=== PATIENT | female | born 1975 | race Caucasian/White ===

== ENCOUNTER 2017-12-28 14:20 | Emergency (ER) | payer BC ==
[2017-12-28 14:28] VITALS: BP 130/84
--- NOTE | 2017-12-28 16:37 | EDM.PDOC ---
ED HPI GENERAL MEDICAL PROBLEM - General Chief Complaint: Lower Extremity Injury/Pain Stated Complaint: ER Time Seen by Provider: 12/28/17 14:30 Source of Information: Reports: Patient History Limitations: Reports: No Limitations - History of Present Illness INITIAL COMMENTS - FREE TEXT/NARRATIVE: Pt. states that she jumped off of a tablet last night, injuring her L heel. Pt. states that she was able to bear weight last night, but states that she has increased pain today. She denies any paresthesia in the distal portion of the extremity. Denies any injury other than what is isolated to the heel. No lateral ankle, forefoot and lower leg pain. Onset Date: 12/27/17 Location: Reports: Lower Extremity, Left Left Heel Pain Score (Numeric/FACES): 8 - Related Data Allergies Allergy/AdvReac Type Severity Reaction Status Date / Time No Known Allergies Allergy Verified 10/30/15 07:47 Home Meds: Home Meds . [No Known Home Meds] 10/30/15 [History] Past Medical History Musculoskeletal History: Reports: Back Pain, Chronic Psychiatric History: Reports: Addiction, Anxiety, Depression - Past Surgical History HEENT Surgical History: Reports: Naso-Sinus Surgery Female Surgical History: Reports: Hysterectomy Social & Family History - Tobacco Use Smoking Status *Q: Current Every Day Smoker Years of Tobacco use: 15 Packs/Tins Daily: 1 - Caffeine Use Caffeine Use: Reports: Coffee, Soda - Recreational Drug Use Recreational Drug Use: No Review of Systems - Review of Systems Review Of Systems: See Below Constitutional: Reports: No Symptoms Eyes: Reports: No Symptoms Ears: Reports: No Symptoms Nose: Reports: No Symptoms Mouth/Throat: Reports: No Symptoms Respiratory: Reports: No Symptoms Cardiovascular: Reports: No Symptoms GI/Abdominal: Reports: No Symptoms Genitourinary: Reports: No Symptoms Musculoskeletal: Reports: Foot Pain Skin: Reports: No Symptoms Neurological: Reports: No Symptoms Psychiatric: Reports: No Symptoms ED EXAM, GENERAL - Physical Exam Exam: See Below Exam Limited By: No Limitations General Appearance: Alert, WD/WN, No Apparent Distress Extremities: Normal Inspection, Normal Capillary Refill, Other (tenderness noted to L calcaneus, no deformity noted.) Neurological: Alert, Oriented, CN II-XII Intact, Normal Cognition, Normal Gait, Normal Reflexes, No Motor/Sensory Deficits Psychiatric: Normal Affect, Normal Mood Skin Exam: Warm, Dry, Intact, Normal Color, No Rash Lymphatic: No Adenopathy Course - Vital Signs Last Recorded V/S: Last Vital Signs Temp 36.8 C 12/28/17 14:25 Pulse 118 H 12/28/17 14:25 Resp 24 H 12/28/17 14:25 BP 130/84 12/28/17 14:25 Pulse Ox 97 12/28/17 14:25 - Orders/Labs/Meds Orders: Active Orders 24 hr Category Date Time Status Calcaneous Lt [CR] Stat Exams 12/28/17 14:32 Taken Departure - Departure Time of Disposition: 15:18 Disposition: Home, Self-Care 01 Condition: Good Clinical Impression: Foot contusion - Discharge Information Instructions: Foot Contusion, [id number] Referrals: Prem Arndt MD [Primary Care Provider] - Forms: ED Department Discharge Additional Instructions: Use crutches as needed to help with walking. Ice the heel for 10-15 min every 1-2 hours. Elevate foot and ankle above heart. Please excuse from work from 12/28/17 to 01/01/18 due to injury. - My Orders Last 24 Hours: My Active Orders 12/28/17 14:32 Calcaneous Lt [CR] Stat - Assessment/Plan Last 24 Hours: My Active Orders 12/28/17 14:32 Calcaneous Lt [CR] Stat Plan: Use crutches as needed to help with walking. Ice the heel for 10-15 min every 1-2 hours. Elevate foot and ankle above heart. Please excuse from work from 12/28/17 to 01/01/18 due to injury.
== END 2017-12-28 15:18 | disposition home or self-care (01) ==
LOC: SUPCPDRO 14:20 → VM.ED 14:20
DX: S90.32XA Contusion of left foot, initial encounter (principal); F17.210 Nicotine dependence, cigarettes, uncomplicated; W08.XXXA Fall from other furniture, initial encounter
CPT/HCPCS: 73650-LT; 99283

== ENCOUNTER 2021-07-02 15:00 | Emergency (ER) | payer BC, MEDICAID ==
[2021-07-02] MEDS ORDERED: Ketorolac 15 MG/ML SDV IVPUSH ONE (15:08)
[2021-07-02] MEDS ORDERED: Sodium Chloride 0.9% 1,000 ML IV SCH ×2 (15:15)
[2021-07-02 15:29] VITALS: BP 131/80; PULSE 112
--- NOTE | 2021-07-02 15:34 | CR ---
[id number] RAD/RAD Chest PA or AP 1V EXAM: FRONTAL CHEST INDICATION: CHEST PAIN. COMPARISON: None. DISCUSSION: The heart and lungs are normal in appearance. Chronic right rib fractures. IMPRESSION: 1. Negative exam. Dangelo Escobar MD 07/02/21 [id number] Thank you for allowing us to participate in the care of your patient.
[2021-07-02 16:01] LABS: CHLORIDE,CL 108 mmol/L (98-107); SODIUM,NA 141 mmol/L (136-145)
[2021-07-02 16:01] LABS: CORONAVIRUS COVID-19 NAA NEGATIVE (NEGATIVE)
[2021-07-02 16:02] LABS: ANION GAP 14.6 mmol/L (5-15)
[2021-07-02 16:02] LABS: RESPIRATORY SYNCYTIAL VIR NAA NEGATIVE (NEGATIVE)
[2021-07-02] MEDS ORDERED: Sodium Chloride 0.9% 500 ML IV ONE (16:04)
[2021-07-02] MEDS ORDERED: GI Cocktail Oral Solution 30 ML PO ONE (16:51)
--- NOTE | 2021-07-03 07:32 | EDM.PDOC ---
ED HPI GENERAL MEDICAL PROBLEM - General Chief Complaint: ENT Problem Time Seen by Provider: 07/02/21 15:00 Source of Information: Reports: Patient, Family History Limitations: Reports: No Limitations - History of Present Illness INITIAL COMMENTS - FREE TEXT/NARRATIVE: Pt. presents to ER with complaints of sore throat, problems swallowing, fever, fatigue, weakness, nausea, myalgias, arthralgias, headache, congestion and cough. She states that she symptoms started several days ago. She states that her throat hurts too much to drink. Denies any nausea or vomiting. No diarrhea. She also complained of bilateral L sided flank pain. Denies any dysuria, hesitancy, urgency, or frequency. EMS was summoned. Pt. reported complaints of respirophasic chest pain. She states that her cough is non-productive. Pt. was extremely anxious in the field, hyperventilating and complaining of numbness/tingling in her digits. Onset Date: 07/01/21 Location: Reports: Neck, Chest, Generalized Quality: Reports: Burning, Throbbing Severity: Severe Treatments [employer]IST: Reports: EKG Throat Pain Score (Numeric/FACES): 8 - Related Data Allergies Allergy/AdvReac Type Severity Reaction Status Date / Time No Known Allergies Allergy Verified 07/02/21 15:33 Home Meds: Home Meds Cholecalciferol (Vitamin D3) [Vitamin D3] 2,000 unit PO DAILY 07/02/21 [History] Hydroxychloroquine [Plaquenil] 100 mg PO DAILY 07/02/21 [History] Hydroxychloroquine [Plaquenil] 200 mg PO DAILY 07/02/21 [History] Ixekizumab [Taltz Autoinjector] 80 mg SQ ASDIRECTED 07/02/21 [History] Naproxen 500 mg PO BIDMEALS 07/02/21 [History] hydrOXYzine pamoate [Hydroxyzine Pamoate] 25 mg PO QID PRN 07/02/21 [History] predniSONE [Prednisone] 10 mg PO ASDIRECTED PRN 07/02/21 [History] sulfaSALAzine 500 mg PO BIDMEALS 07/02/21 [History] valACYclovir [Valtrex] 1,000 mg PO BID PRN 07/02/21 [History] Past Medical History Musculoskeletal History: Reports: Back Pain, Chronic Psychiatric History: Reports: Addiction, Anxiety, Depression - Past Surgical History HEENT Surgical History: Reports: Naso-Sinus Surgery Female Surgical History: Reports: Hysterectomy Social & Family History - Tobacco Use Tobacco Use Status *Q: Unknown Ever Used Tobacco - Caffeine Use Caffeine Use: Reports: Coffee, Soda ED ROS GENERAL - Review of Systems Review Of Systems: See Below Constitutional: Reports: No Symptoms HEENT: Reports: Sinus Problem, Throat Pain Respiratory: Reports: Pleuritic Chest Pain, Cough Cardiovascular: Reports: No Symptoms Endocrine: Reports: No Symptoms GI/Abdominal: Reports: No Symptoms : Reports: No Symptoms Musculoskeletal: Reports: No Symptoms Skin: Reports: No Symptoms Neurological: Reports: No Symptoms Psychiatric: Reports: No Symptoms Hematologic/Lymphatic: Reports: No Symptoms Immunologic: Reports: No Symptoms ED EXAM, GENERAL - Physical Exam Exam: See Below Exam Limited By: No Limitations General Appearance: Alert, WD/WN, No Apparent Distress Eye Exam: Bilateral Eye: EOMI Ears: Normal External Exam, Normal Canal, Hearing Grossly Normal, Normal TMs Nose: Normal Inspection, No Blood Throat/Mouth: Normal Lips, Normal Teeth, Normal Gums, Normal Voice, No Airway Compromise, Inflammation Head: Atraumatic, Normocephalic Neck: Normal Inspection, Supple, Non-Tender, Full Range of Motion Respiratory/Chest: No Respiratory Distress, Lungs Clear, Normal Breath Sounds, No Accessory Muscle Use, Chest Non-Tender Cardiovascular: Normal Peripheral Pulses, Regular Rate, Rhythm, No Edema, No Gallop, No JVD, No Murmur, No Rub Peripheral Pulses: 4+: Radial (R) GI/Abdominal: Soft, Non-Tender, No Distention, No Mass (Female) Exam: Deferred Rectal (Female) Exam: Deferred Back Exam: Normal Inspection, Full Range of Motion Extremities: Normal Inspection, Normal Range of Motion, Non-Tender, Normal Capillary Refill, No Pedal Edema Neurological: Alert, Oriented, CN II-XII Intact, Normal Reflexes, No Motor/Sensory Deficits Psychiatric: Anxious, Tearful Skin Exam: Warm, Dry, Intact #1 Interpretation Rhythm: NSR [place]: Normal P-Wave: Present QRS: Normal ST-T: Normal QT: Normal Course - Vital Signs Last Recorded V/S: Last Vital Signs Temp 37.2 C 07/02/21 15:00 Pulse 112 H 07/02/21 15:00 Resp 20 07/02/21 15:00 BP 131/80 07/02/21 15:00 Pulse Ox 98 07/02/21 15:00 - Orders/Labs/Meds Orders: Active Orders 24 hr Category Date Time Status CULTURE BLOOD [BC] Stat Lab 07/02/21 15:24 Received CULTURE BLOOD [BC] Stat Lab 07/02/21 15:27 Received CULTURE URINE [RM] Stat Lab 07/02/21 16:55 Received Blood Culture x2 Reflex Set [OM.PC] Stat Oth 07/02/21 15:03 Ordered Labs: Laboratory Tests 07/02/21 07/02/21 07/02/21 Range/Units 15:04 15:04 15:24 WBC 7.7 (4.0-10.0) x10^3/uL RBC 4.10 (4.00-5.50) x10^6/uL Hgb 13.1 (12.0-16.0) g/dL Hct 38.3 (33.0-47.0) % MCV 93.4 H (78.0-93.0) fL MCH 32.0 (26.0-32.0) pg MCHC 34.2 (32.0-36.0) g/dL RDW Coeff of Mae 12.7 (10.0-15.0) % Plt Count 277 (130-400) x10^3/uL Immature Gran % (Auto) 0.10 (0.00-0.43) % Neut % (Auto) 69.5 (50.0-80.0) % Lymph % (Auto) 21.2 L (25.0-50.0) % [place] % (Auto) 9.2 (2.0-11.0) % Eos % (Auto) 0.0 (0.0-4.0) % Baso % (Auto) 0.0 L (0.2-1.2) % Neut # (Auto) 5.3 (1.8-7.7) x10^3/uL Lymph # (Auto) 1.6 (1.0-4.8) x10^3/uL [place] # (Auto) 0.7 (0.0-0.8) x10^3/uL Eos # (Auto) 0.0 (0.0-0.5) x10^3/uL Baso # (Auto) 0.0 (0.0-0.2) x10^3/uL Immature Gran # (Auto) 0.01 (0.00-0.07) x10^3/uL PT (9.9-12.5) SEC INR (2.0-3.5) APTT (25.6-32.8) SEC Sodium (136-145) mmol/L Potassium (3.5-5.1) mmol/L Chloride (98-107) mmol/L Carbon Dioxide (21-32) mmol/L Anion Gap (5-15) mmol/L BUN (7-18) mg/dL Creatinine (0.55-1.02) mg/dL Est Cr Clr Drug Dosing Estimated GFR (MDRD) Glucose (70-99) mg/dL Lactic Acid (0.4-2.0) mmol/L Calcium (8.5-10.1) mg/dL Corrected Calcium (8.5-10.1) mg/dL Phosphorus (2.6-4.7) mg/dL Magnesium (1.8-2.4) mg/dL Total Bilirubin (0.2-1.0) mg/dL AST (15-37) U/L ALT (14-59) U/L Alkaline Phosphatase (46-116) U/L Troponin I High Sens (<=51) ng/L C-Reactive Protein (<=0.9) mg/dL NT-Pro-B Natriuret Pep (<=125) pg/mL Total Protein (6.4-8.2) g/dL Albumin (3.4-5.0) g/dL Globulin Albumin/Globulin Ratio Urine Color (YELLOW) Urine Appearance (CLEAR) Urine pH (5.0-8.0) Ur Specific [place] Urine Protein (NEGATIVE) mg/dL Urine Glucose (UA) (NEGATIVE) mg/dL Urine Ketones (NEGATIVE) mg/dL Urine Occult Blood (NEGATIVE) Urine Nitrite (NEGATIVE) Urine Bilirubin (NEGATIVE) Urine Urobilinogen (0.2) EU/dL Ur Leukocyte Esterase (NEGATIVE) Urine RBC (NOT SEEN) /HPF Urine WBC (NOT SEEN) /HPF Ur Squamous Epith Cells (NOT SEEN) /HPF Calcium Oxalate Crystal (NOT SEEN) /HPF Amorphous Sediment Urine Bacteria (NOT SEEN) /HPF Urine Mucus (NOT SEEN) /LPF Influenza Type A RNA Negative (NEGATIVE) RSV RNA (INAAT) Negative (NEGATIVE) Influenza Type B RNA Negative (NEGATIVE) SARS-CoV-2 RNA (WU) Negative (NEGATIVE) Group A Strep (PCR) Not detected (NOT DETECT) 07/02/21 07/02/21 07/02/21 Range/Units 15:24 15:24 15:24 WBC (4.0-10.0) x10^3/uL RBC (4.00-5.50) x10^6/uL Hgb (12.0-16.0) g/dL Hct (33.0-47.0) % MCV (78.0-93.0) fL MCH (26.0-32.0) pg MCHC (32.0-36.0) g/dL RDW Coeff of Mae (10.0-15.0) % Plt Count (130-400) x10^3/uL Immature Gran % (Auto) (0.00-0.43) % Neut % (Auto) (50.0-80.0) % Lymph % (Auto) (25.0-50.0) % [place] % (Auto) (2.0-11.0) % Eos % (Auto) (0.0-4.0) % Baso % (Auto) (0.2-1.2) % Neut # (Auto) (1.8-7.7) x10^3/uL Lymph # (Auto) (1.0-4.8) x10^3/uL [place] # (Auto) (0.0-0.8) x10^3/uL Eos # (Auto) (0.0-0.5) x10^3/uL Baso # (Auto) (0.0-0.2) x10^3/uL Immature Gran # (Auto) (0.00-0.07) x10^3/uL PT 10.7 (9.9-12.5) SEC INR 1.0 L (2.0-3.5) APTT 24.0 L (25.6-32.8) SEC Sodium 141 (136-145) mmol/L Potassium 3.6 (3.5-5.1) mmol/L Chloride 108 H (98-107) mmol/L Carbon Dioxide 22 (21-32) mmol/L Anion Gap 14.6 (5-15) mmol/L BUN 17 (7-18) mg/dL Creatinine 0.5 L (0.55-1.02) mg/dL Est Cr Clr Drug Dosing TNP Estimated GFR (MDRD) > 60 Glucose 101 H (70-99) mg/dL Lactic Acid (0.4-2.0) mmol/L Calcium 7.9 L (8.5-10.1) mg/dL Corrected Calcium 8.9 (8.5-10.1) mg/dL Phosphorus 2.7 (2.6-4.7) mg/dL Magnesium 1.7 L (1.8-2.4) mg/dL Total Bilirubin 0.3 (0.2-1.0) mg/dL AST 22 (15-37) U/L ALT 26 (14-59) U/L Alkaline Phosphatase 53 (46-116) U/L Troponin I High Sens 4 (<=51) ng/L C-Reactive Protein 0.7 (<=0.9) mg/dL NT-Pro-B Natriuret Pep 19 (<=125) pg/mL Total Protein 5.5 L (6.4-8.2) g/dL Albumin 2.8 L (3.4-5.0) g/dL Globulin 2.7 Albumin/Globulin Ratio 1.04 Urine Color (YELLOW) Urine Appearance (CLEAR) Urine pH (5.0-8.0) Ur Specific [place] Urine Protein (NEGATIVE) mg/dL Urine Glucose (UA) (NEGATIVE) mg/dL Urine Ketones (NEGATIVE) mg/dL Urine Occult Blood (NEGATIVE) Urine Nitrite (NEGATIVE) Urine Bilirubin (NEGATIVE) Urine Urobilinogen (0.2) EU/dL Ur Leukocyte Esterase (NEGATIVE) Urine RBC (NOT SEEN) /HPF Urine WBC (NOT SEEN) /HPF Ur Squamous Epith Cells (NOT SEEN) /HPF Calcium Oxalate Crystal (NOT SEEN) /HPF Amorphous Sediment Urine Bacteria (NOT SEEN) /HPF Urine Mucus (NOT SEEN) /LPF Influenza Type A RNA (NEGATIVE) RSV RNA (INAAT) (NEGATIVE) Influenza Type B RNA (NEGATIVE) SARS-CoV-2 RNA (WU) (NEGATIVE) Group A Strep (PCR) (NOT DETECT) 07/02/21 07/02/21 Range/Units 15:24 16:55 WBC (4.0-10.0) x10^3/uL RBC (4.00-5.50) x10^6/uL Hgb (12.0-16.0) g/dL Hct (33.0-47.0) % MCV (78.0-93.0) fL MCH (26.0-32.0) pg MCHC (32.0-36.0) g/dL RDW Coeff of Mae (10.0-15.0) % Plt Count (130-400) x10^3/uL Immature Gran % (Auto) (0.00-0.43) % Neut % (Auto) (50.0-80.0) % Lymph % (Auto) (25.0-50.0) % [place] % (Auto) (2.0-11.0) % Eos % (Auto) (0.0-4.0) % Baso % (Auto) (0.2-1.2) % Neut # (Auto) (1.8-7.7) x10^3/uL Lymph # (Auto) (1.0-4.8) x10^3/uL [place] # (Auto) (0.0-0.8) x10^3/uL Eos # (Auto) (0.0-0.5) x10^3/uL Baso # (Auto) (0.0-0.2) x10^3/uL Immature Gran # (Auto) (0.00-0.07) x10^3/uL PT (9.9-12.5) SEC INR (2.0-3.5) APTT (25.6-32.8) SEC Sodium (136-145) mmol/L Potassium (3.5-5.1) mmol/L Chloride (98-107) mmol/L Carbon Dioxide (21-32) mmol/L Anion Gap (5-15) mmol/L BUN (7-18) mg/dL Creatinine (0.55-1.02) mg/dL Est Cr Clr Drug Dosing Estimated GFR (MDRD) Glucose (70-99) mg/dL Lactic Acid 0.9 (0.4-2.0) mmol/L Calcium (8.5-10.1) mg/dL Corrected Calcium (8.5-10.1) mg/dL Phosphorus (2.6-4.7) mg/dL Magnesium (1.8-2.4) mg/dL Total Bilirubin (0.2-1.0) mg/dL AST (15-37) U/L ALT (14-59) U/L Alkaline Phosphatase (46-116) U/L Troponin I High Sens (<=51) ng/L C-Reactive Protein (<=0.9) mg/dL NT-Pro-B Natriuret Pep (<=125) pg/mL Total Protein (6.4-8.2) g/dL Albumin (3.4-5.0) g/dL Globulin Albumin/Globulin Ratio Urine Color Dark yellow H (YELLOW) Urine Appearance Slightly cloudy H (CLEAR) Urine pH 6.5 (5.0-8.0) Ur Specific [place] >=1.030 Urine Protein Negative (NEGATIVE) mg/dL Urine Glucose (UA) Negative (NEGATIVE) mg/dL Urine Ketones 15 H (NEGATIVE) mg/dL Urine Occult Blood Negative (NEGATIVE) Urine Nitrite Negative (NEGATIVE) Urine Bilirubin Small H (NEGATIVE) Urine Urobilinogen 1.0 (0.2) EU/dL Ur Leukocyte Esterase Trace H (NEGATIVE) Urine RBC 0-5 (NOT SEEN) /HPF Urine WBC 5-10 H (NOT SEEN) /HPF Ur Squamous Epith Cells Many H (NOT SEEN) /HPF Calcium Oxalate Crystal Few H (NOT SEEN) /HPF Amorphous Sediment Occasional Urine Bacteria Occasional H (NOT SEEN) /HPF Urine Mucus Occasional H (NOT SEEN) /LPF Influenza Type A RNA (NEGATIVE) RSV RNA (INAAT) (NEGATIVE) Influenza Type B RNA (NEGATIVE) SARS-CoV-2 RNA (WU) (NEGATIVE) Group A Strep (PCR) (NOT DETECT) Meds: Medications Discontinued Medications Generic Name Dose Route Start Last Admin Trade Name Freq PRN Reason Stop Dose Admin Al Hydroxide/Mg Hydroxide 30 ml 07/02/21 16:51 07/02/21 16:57 Gi Cocktail Oral Solution 30 Ml PO 07/02/21 16:52 30 ml ONETIME ONE Administration Sodium Chloride 1,000 mls @ 1,000 mls/hr 07/02/21 15:15 07/02/21 15:14 Normal Saline IV 1,000 mls/hr ASDIRECTED KIMBERLY Administration Sodium Chloride 1,000 mls @ 1,000 mls/hr 07/02/21 15:15 Normal Saline IV ASDIRECTED KIMBERLY Sodium Chloride 500 mls @ 500 mls/hr 07/02/21 16:04 07/02/21 16:14 Normal Saline IV 07/02/21 17:03 500 mls/hr ONETIME ONE Administration Ketorolac Tromethamine 15 mg 07/02/21 15:08 07/02/21 15:14 Ketorolac 15 Mg/Ml Sdv IVPUSH 07/02/21 15:09 15 mg ONETIME ONE Administration - Radiology Interpretation Free Text/Narrative:: chest x-ray is negative - Re-Assessments/Exams Free Text/Narrative Re-Assessment/Exam: Pt. given 1500ml NS bolus in ER. She was initially unable to provide UA. Her urine specific gravity was still 1.030 after the fluids. She was also given some toradol for discomfort, as well as a GI cocktail. She reported feeling much improved at time of discharge. Departure - Departure Time of Disposition: 17:25 Disposition: Home, Self-Care 01 Clinical Impression: Pharyngitis, Asymptomatic bacteriuria, Dehydration, Viral illness - Discharge Information Instructions: Ondansetron tablets, Upper Respiratory Infection, Adult, [id number], Sore Throat, [id number] Referrals: Amalia Shukla PA-C [Primary Care Provider] - Forms: ED Department Discharge Additional Instructions: Home to rest. Zofran ODT 1 tab every 6 hours as needed for nausea/vomiting Drink plenty of fluids Tylenol and ibuprofen as needed for discomfort/fever Please excuse from work due to illness. - Problem List Review Problem List Initiated/Reviewed/Updated: Yes - My Orders Last 24 Hours: My Active Orders 07/02/21 15:03 Blood Culture x2 Reflex Set [OM.PC] Stat 07/02/21 15:24 CULTURE BLOOD [BC] Stat 07/02/21 15:27 CULTURE BLOOD [BC] Stat 07/02/21 16:55 CULTURE URINE [RM] Stat - Assessment/Plan Last 24 Hours: My Active Orders 07/02/21 15:03 Blood Culture x2 Reflex Set [OM.PC] Stat 07/02/21 15:24 CULTURE BLOOD [BC] Stat 07/02/21 15:27 CULTURE BLOOD [BC] Stat 07/02/21 16:55 CULTURE URINE [RM] Stat Plan: Home to rest. Zofran ODT 1 tab every 6 hours as needed for nausea/vomiting Drink plenty of fluids Tylenol and ibuprofen as needed for discomfort/fever Please excuse from work due to illness.
== END 2021-07-02 17:11 | disposition home or self-care (01) ==
LOC: VM.ED 15:00
DX: B34.9 Viral infection, unspecified (principal); E86.0 Dehydration; R82.71 Bacteriuria; Z20.822 Contact with and (suspected) exposure to COVID-19
CPT/HCPCS: 0241U; 36415; 71045; 80053; 81001; 83605; 83735; 83880; 84100; 84484; 85025; 85610; 85730; 86140; 87040; 87086; 87651; 96374; 99284; A9270; J1885; J7030